=== PATIENT | male | born 1960 | race Caucasian/White ===

== ENCOUNTER 2022-09-18 20:01 | Emergency (ER) | payer BC ==
[2022-09-18] MEDS ORDERED: Lidocaine 2% with EPINEPHrine 1:100,000 20 ML MDV INFILT ONE (20:02)
[2022-09-18] MEDS ORDERED: Diphtheria,Pertussis(Acell),Tetanus Vaccine 0.5 ML Syringe IM ONE (20:32)
== END 2022-09-18 21:05 | disposition home or self-care (01) ==
LOC: FB.ED 20:01
DX: S61.012A Laceration without foreign body of left thumb without damage to nail, initial encounter (principal); Z23 Encounter for immunization; W26.8XXA Contact with other sharp object(s), not elsewhere classified, initial encounter
CPT/HCPCS: 12001; 90471; 90715; 99282-25

== ENCOUNTER 2024-05-11 08:23 | Emergency (ER) | payer BC | END 2024-05-11 09:55 | disposition home or self-care (01) | LOC: FB.ED 08:23 | DX: S52.572A Other intraarticular fracture of lower end of left radius, initial encounter for closed fracture (principal); W00.0XXA Fall on same level due to ice and snow, initial encounter | CPT/HCPCS: 29125; 73110-LT; 99283-25 ==

== ENCOUNTER 2024-12-01 06:34 | Emergency (ER) | payer BC | END 2024-12-01 07:27 | disposition home or self-care (01) | LOC: FB.ED 06:34 | DX: S61.211A Laceration without foreign body of left index finger without damage to nail, initial encounter (principal); E78.00 Pure hypercholesterolemia, unspecified; I10 Essential (primary) hypertension; W26.8XXA Contact with other sharp object(s), not elsewhere classified, initial encounter; Y93.89 Activity, other specified; Z86.16 Personal history of COVID-19 | CPT/HCPCS: 99282; 99283 ==